=== PATIENT | female | born 1990 | race Caucasian/White ===

== ENCOUNTER 2019-06-16 14:35 | Inpatient (IN) | payer BC ==
[2019-06-16 14:44] VITALS: BMI 20.7
--- NOTE | 2019-06-16 14:45 | PDOC ---
Rapid Medical Evaluation Time Seen by Provider: 06/16/19 14:40 Medical Evaluation: Allergies Allergy/AdvReac Type Severity Reaction Status Date / Time No Known Allergies Allergy Verified 06/16/19 14:40 06/16/19 14:42 The patient presents for an abscess behind her L ear starting a few days ago. She was seen by Dr. Salazar and told to come to the ER for surgical evaluation. She is 12 weeks , denies vaginal bleeding. Exam: 2cm linear area of induration with associated drainage. Orders: labs Pt to proceed to the ER for further evaluation Discharge Disposition - Diagnosis Abscess - Referrals - Patient Instructions - Post Discharge Activity
[2019-06-16 15:31] LABS: INR 0.92 (0.83-1.09); PROTHROMBIN TIME (PATIENT) 10.9 SEC (9.7-13.0)
[2019-06-16 15:33] LABS: BASO % 0.5 % (0-2.0); EOS % 2.8 % (0-4.5); HEMATOCRIT 38.7 % (32.4-45.2); HEMOGLOBIN 12.3 GM/dL (10.7-15.3); LYMPH % 14.5 % (8-40); MCHC 31.8 g/dl (32.0-36.0); MEAN CELL VOLUME 85.2 fl (80-96); MEAN PLT VOLUME 8.7 fl (7.5-11.1); MONO % 8.9 % (3.8-10.2); NEUT % 73.3 % (42.8-82.8); PLATELET COUNT 272 K/MM3 (134-434); RBC 4.54 M/mm3 (3.60-5.2); RDW 16.1 % (11.6-15.6); WHITE BLOOD COUNT 15.9 K/mm3 (4.0-10.0)
[2019-06-16 15:43] LABS: ALBUMIN 3.5 g/dl (3.4-5.0); BILIRUBIN,TOTAL 0.2 mg/dL (0.2-1); BLOOD UREA NITROGEN 8.3 mg/dL (7-18); CALCIUM 8.9 mg/dL (8.5-10.1); CREATININE 0.6 mg/dL (0.55-1.3); POTASSIUM 3.9 mmol/L (3.5-5.1); TOT PROT 7.4 g/dl (6.4-8.2)
--- NOTE | 2019-06-16 16:41 | PDOC ---
History of Present Illness - General Chief Complaint: Wound Stated Complaint: SENT BY Time Seen by Provider: 06/16/19 14:40 - History of Present Illness Initial Comments: 06/16/19 16:35 CHIEF COMPLAINT: ear abscess HISTORY OF PRESENT ILLNESS: 28 yo F female sent to ED for ear abscess x "a few days" after returning from [place]. Patient reports that she was prescribed amoxicillin yesterday by an LOAN OFFICER ASSISTANT at her PCP's office. She reports today her PCP Dr. Salazar gave her IV Keflex in the office. Dr. Salazar tried to drain in the office but sent her here to No recent travel or sick contacts. PAST MEDICAL HISTORY: Denies past medical history FAMILY HISTORY: Denies SOCIAL HISTORY: Denies tobacco, alcohol, illicit drug use. SURGICAL HISTORY: Denies ALLERGIES: No known drug allergies REVIEW OF SYSTEMS General/Constitutional: Denies fever or chills. Denies weakness, weight change. HEENT: Abscess to L ear. Denies change in vision. Denies ear pain or discharge. Denies sore throat. Cardiovascular: Denies chest pain or shortness of breath. Respiratory: Denies cough, wheezing, or hemoptysis. Gastrointestinal: Denies nausea, vomiting, diarrhea or constipation. Denies rectal bleeding. Genitourinary: Denies dysuria, frequency, or change in urination. Musculoskeletal: Denies joint or muscle swelling or pain. Denies neck or back pain. Skin and breasts: Denies rash or easy bruising. Neurologic: Denies headache, vertigo, loss of consciousness, or loss of sensation. Psychiatric: Denies depression or anxiety. PHYSICAL EXAM General Appearance: Well-appearing, appropriately dressed. No apparent distress. HEENT: Tender abscess to L posterior ear. EOMI, PERRLA, normal ENT inspection, normal voice, TMs normal, pharynx normal. No conjunctival pallor. No photophobia, scleral icterus. Neck: Supple. Trachea midline. No tenderness, rigidity, carotid bruit, stridor , lymphadenopathy, or thyromegaly. Respiratory/Chest: Lungs CTAB. No shortness of breath, chest tenderness, respiratory distress, accessory muscle use. No crackles, rales, rhonchi, stridor , wheezing, dullness Cardiovascular: RRR. S1, S2. No JVD, murmur, bradycardia, tachycardia. Vascular Pulses: Dorsalis-Pedis (R): 2+, Dorsalis-Pedis (L): 2+ Gastrointestinal/Abdominal: Normal bowel sounds. Abdomen soft, non-distended. No tenderness or rebound tenderness. No organomegaly, pulsatile mass, guarding , hernia, hepatomegaly, splenomegaly. Lymphatic: No adenopathy, tenderness. Musculoskeletal/Extremities: Normal inspection. FROM of all extremities, normal capillary refill. Pelvis Stable. No CVA tenderness. No tenderness to extremities, pedal edema, swelling, erythema or deformity. Integumentary: Appropriate color, dry, warm. No cyanosis, erythema, jaundice or rash Neurologic: inspector repairer II-XII intact. Fully oriented, alert. Appropriate mood/affect. Motor strength 5/5. No appreciable EOM palsy, facial droop or sensory deficit. 06/16/19 17:03 Past History - Past Medical History Allergies/Adverse Reactions: Allergies Allergy/AdvReac Type Severity Reaction Status Date / Time No Known Allergies Allergy Verified 06/16/19 14:40 COPD: No - Immunization History Immunization Up to Date: No - Suicide/Smoking/Psychosocial Hx Smoking History: Never smoked Have you smoked in the past 12 months: No Hx Alcohol Use: No Drug/Substance Use Hx: No *Physical Exam - Vital Signs Last Vital Signs Temp Pulse Resp BP Pulse Ox 98.4 F 89 18 128/66 100 06/16/19 14:41 06/16/19 14:41 06/16/19 14:41 06/16/19 14:41 06/16/19 14:41 ED Treatment Course - LABORATORY CBC & Chemistry Diagram: 06/16/19 15:03 06/16/19 15:03 - ADDITIONAL ORDERS Additional order review: Laboratory Results 06/16/19 06/16/19 06/16/19 15:03 15:03 15:03 PT with INR 10.90 INR 0.92 Sodium Potassium Chloride Carbon Dioxide Anion Gap BUN Creatinine Est GFR (CKD-EPI)AfAm Est GFR (CKD-EPI)NonAf Random Glucose Calcium Total Bilirubin AST ALT Alkaline Phosphatase Total Protein Albumin Urine HCG, Qual Positive Blood Type O POSITIVE Antibody Screen Negative 06/16/19 15:03 PT with INR INR Sodium 136 Potassium 3.9 Chloride 103 Carbon Dioxide 26 Anion Gap 7 L BUN 8.3 Creatinine 0.6 Est GFR (CKD-EPI)AfAm 143.77 Est GFR (CKD-EPI)NonAf 124.04 Random Glucose 99 Calcium 8.9 Total Bilirubin 0.2 AST 20 ALT 51 Alkaline Phosphatase 103 Total Protein 7.4 Albumin 3.5 Urine HCG, Qual Blood Type Antibody Screen 06/16/19 15:03 RBC 4.54 MCV 85.2 MCHC 31.8 L RDW 16.1 H MPV 8.7 Neutrophils % 73.3 Lymphocytes % 14.5 Monocytes % 8.9 Eosinophils % 2.8 Basophils % 0.5 Medical Decision Making - Medical Decision Making 06/16/19 16:30 28 yo F female sent to ED for ear abscess x "a few days" after returning from [place]. Discussed case with Dr. Raines, who states he will come and see patient. 06/16/19 15:[address] Raines, who states patient needs to be admitted to have I&D completed in OR tomorrow. *DC/Admit/Observation/Transfer Diagnosis at time of Disposition: Abscess - Discharge Dispostion Decision to Admit order: Yes - Referrals - Patient Instructions - Post Discharge Activity
[2019-06-16] MEDS ORDERED: CEFAZOLIN 1 GM/D5W 1 GM/50 ML BAG IVPB ONE (17:21)
[2019-06-16] MEDS ORDERED: CEFAZOLIN 1 GM/D5W 1 GM/50 ML BAG ONE (17:50)
[2019-06-16] MEDS: SODIUM CHLORIDE 1,000 ML IV SCH (22:09)
--- NOTE | 2019-06-16 22:30 | HP ---
Admitting History and Physical - Primary Care Physician PCP: Sacha Salazar - Admission Chief Complaint: Abscess behind L- Ear History of Present Illness: This is a 28 y/o woman who is 12 weeks gestation with no PMHx. Who presents to the ED sent in by her PMD for abscess to L- mastoid process. Patient reports recent trip to [place] and noted a bump behind her ear that worsened after her popped it at home. She reports using warm compresses and taking Tylenol without relief. She reports taking Keflex without improvement and was at the office today, and her PMD attempted to I&D it. Patient reprots 2 other bumps appeared one above the first and the other in the mid nape of her hairline. Patient denies fever, chills, cough, SOB, CP, palpiations, N/V/D, constipation, dysuria History Source: Patient Limitations to Obtaining History: No Limitations - Past Medical History ...: Yes (12 weeks gestation) ...: 1 ...Para: 0 - Smoking History Smoking history: Never smoked Have you smoked in the past 12 months: No - Alcohol/Substance Use Hx Alcohol Use: No Home Medications - Allergies Allergies/Adverse Reactions: Allergies Allergy/AdvReac Type Severity Reaction Status Date / Time No Known Allergies Allergy Verified 06/16/19 14:40 - Home Medications Home Medications: Ambulatory Orders NK [No Known Home Medication] 06/16/19 Family Medical History Family History: Unremarkable Review of Systems - Review of Systems Constitutional: reports: No Symptoms Eyes: reports: No Symptoms HENT: reports: No Symptoms Neck: reports: Swollen Glands, Tenderness Cardiovascular: reports: No Symptoms Respiratory: reports: No Symptoms Gastrointestinal: reports: No Symptoms Genitourinary: reports: No Symptoms Breasts: reports: No Symptoms Reported Musculoskeletal: reports: No Symptoms Integumentary: reports: Erythema, Lump Neurological: reports: No Symptoms Endocrine: reports: No Symptoms Hematology/Lymphatic: reports: No Symptoms Psychiatric: reports: No Symptoms Pain Intensity: 6 Physical Examination Vital Signs: Vital Signs Temperature 98.4 F 06/16/19 14:41 Pulse Rate 89 06/16/19 14:41 Respiratory Rate 18 06/16/19 14:41 Blood Pressure 128/66 06/16/19 14:41 O2 Sat by Pulse Oximetry (%) 100 06/16/19 14:41 Constitutional: Yes: Well Nourished, No Distress, Calm Eyes: Yes: WNL, Conjunctiva Clear, EOM Intact HENT: Yes: WNL, Atraumatic, Normocephalic Neck: Yes: WNL, Supple, Trachea Midline Cardiovascular: Yes: WNL, Regular Rate and Rhythm, S1, S2 Respiratory: Yes: WNL, Regular, CTA Bilaterally Gastrointestinal: Yes: WNL, Normal Bowel Sounds, Soft ...Rectal Exam: Yes: Deferred Renal/: Yes: WNL Breast(s): Yes: WNL Musculoskeletal: Yes: WNL Extremities: Yes: WNL Edema: No Peripheral Pulses WNL: Yes Integumentary: Yes: Erythema Wound/Incision: Yes: Reddened, Other (induration, TTP to L-posterior auricular/ mastoid process) Neurological: Yes: WNL, Alert, Oriented ...Motor Strength: WNL Psychiatric: Yes: WNL, Alert, Oriented Labs: CBC, BMP 06/16/19 15:03 06/16/19 15:03 Problem List - Problems (1) Abscess Assessment/Plan: Patient reports recent travel to [place], ?insect bite Failed outpatient therapy Blood Cultures-pending Ancef given in ED, will continue Surgeon following- OR tomorrow for I&D NPO IVF pre-op labs completed Monitor CBC, BMP Monitor vitals Ofirmev prn Code(s): L02.91 - CUTANEOUS ABSCESS, UNSPECIFIED (2) Assessment/Plan: Continue vitamins f/u with OB in outpatient upon d/c Code(s): Z34.90 - ENCNTR FOR SUPRVSN OF NORMAL , UNSP, UNSP TRIMESTER Qualifiers: Weeks of gestation: 12 weeks Qualified Code(s): Z3A.12 - 12 weeks gestation of Assessment/Plan This is a 28 y/o woman with no PMHx who is 12 weeks Gestation [id number]. Admitted to [facility] for Abscess to L- Posterior Auricular Mastoid Process for further evaluation of their emergent condition Plan: See Problem List FEN NS@75ml/hr Replete lytes NPO DVT ppx OOB SCDs Dispo: Requires Inpatient Care Visit type - Emergency Visit Emergency Visit: Yes ED Registration Date: 06/16/19 Care time: The patient presented to the Emergency Department on the above date and was hospitalized for further evaluation of their emergent condition. - New Patient This patient is new to me today: Yes Date on this admission: 06/16/19 - Critical Care Critical Care patient: No
[2019-06-16] MEDS ORDERED: ACETAMINOPHEN 1000 MG/100 ML VIAL (NON FORMULARY) IVPB PRN (22:43)
[2019-06-17] MEDS ORDERED: DEXTROSE 5%-WATER - 50 ML IVPB ONE (02:25)
[2019-06-17] MEDS ORDERED: ceFAZolin SODIUM 1 GM VIAL ONE (02:25)
[2019-06-17] MEDS: CEFAZOLIN 1 GM in DEXTROSE 5%-WATER - 50 ML IVPB SCH ×2 (02:28→13:10)
[2019-06-17] MEDS: SODIUM CHLORIDE 1,000 ML IV SCH (08:23)
[2019-06-17 08:59] LABS: BASO % 0.6 % (0-2.0); EOS % 3.1 % (0-4.5); HEMATOCRIT 33.5 % (32.4-45.2); HEMOGLOBIN 10.9 GM/dL (10.7-15.3); MCH 27.7 pg (25.7-33.7); MCHC 32.7 g/dl (32.0-36.0); MEAN CELL VOLUME 84.6 fl (80-96); MEAN PLT VOLUME 8.7 fl (7.5-11.1); MONO % 7.5 % (3.8-10.2); NEUT % 72.8 % (42.8-82.8); PLATELET COUNT 241 K/MM3 (134-434); RBC 3.95 M/mm3 (3.60-5.2); RDW 15.8 % (11.6-15.6); WHITE BLOOD COUNT 12.5 K/mm3 (4.0-10.0)
--- NOTE | 2019-06-17 09:06 | CONSULT ---
- Consultation REQUESTING PROVIDER: Martin HUTCHINSON CONSULT REQUEST: We have been asked to surgically evaluate this patient for ( specify). PCP:Sacha Salazar HISTORY OF PRESENT ILLNESS:BOAZ who is a 28 y/o female who is 12 weeks gestation who presents to the [facility] ED sent in by her PMD for an abscess to L- mastoid process. Patient reports recent trip to [place] and noted a bump behind her ear that worsened after her popped it at home. She reports using warm compresses and taking Tylenol without relief. She reports taking Keflex without improvement and was at the office today, and her PMD attempted to I&D it. Patient reprots 2 other bumps appeared one above the first and the other in the mid nape of her hairline. She eceived IVAB's in the office. PMHx: none PSHx: none Home Medications Medication Instructions Recorded NK [No Known Home Medication] 06/16/19 Allergies Allergy/AdvReac Type Severity Reaction Status Date / Time No Known Allergies Allergy Verified 06/16/19 14:40 REVIEW OF SYSTEMS: CONSTITUTIONAL: Absent: fever, chills, diaphoresis, generalized weakness, malaise, loss of appetite, weight change CARDIOVASCULAR: Absent: chest pain, syncope, palpitations, irregular heart rate, lightheadedness , peripheral edema RESPIRATORY: Absent: cough, shortness of breath, dyspnea with exertion, wheezing, stridor, hemoptysis GASTROINTESTINAL: Absent: abdominal pain, abdominal distension, nausea, vomiting, diarrhea, constipation, melena, hematochezia GENITOURINARY: Absent: dysuria, frequency, urgency, hesitancy, hematuria, flank pain, genital pain MUSCULOSKELETAL: Absent: myalgia, arthralgia, joint swelling, back pain, neck pain SKIN: Absent: rash, itching, pallor HEMATOLOGIC/IMMUNOLOGIC: Absent: easy bleeding, easy bruising, lymphadenopathy NEUROLOGIC: Absent: headache, focal weakness, paresthesias, dizziness, unsteady gait, seizure, mental status changes, bladder or bowel incontinence PSYCHIATRIC: Absent: anxiety, depression, suicidal or homicidal ideation, hallucinations. PHYSICAL EXAM: GENERAL: Awake, alert, and fully oriented, in no acute distress. HEAD: Normal with no signs of trauma. EYES: PERRL, sclera anicteric, conjunctiva clear. NECK: Normal ROM, supple without lymphadenopathy, JVD, or masses. ABDOMEN: Soft, nontender, not distended, normoactive bowel sounds, no guarding, no rebound, no masses. No organomegaly. MUSCULOSKELETAL: Normal ROM at all joints. No bony deformities or tenderness. No CVA tenderness. UPPER EXTREMITIES: 2+ pulses, warm, well-perfused. No cyanosis. Cap refill <2 seconds. No peripheral edema. LOWER EXTREMITIES: 2+ pulses, warm, well-perfused. No calf tenderness. No peripheral edema. NEUROLOGICAL: Normal speech, gait not observed. PSYCH: Cooperative. Good eye contact. Appropriate mood and affect. SKIN: Warm, dry, normal turgor, ABSSSI over left mastoid area behind left ear; ttp w/overlying erythema. Vital Signs Temperature 98 F 06/17/19 05:21 Pulse Rate 76 06/17/19 05:21 Respiratory Rate 20 06/17/19 08:37 Blood Pressure 98/48 L 06/17/19 05:21 O2 Sat by Pulse Oximetry (%) 99 06/17/19 08:37 Lab Results WBC 15.9 K/mm3 (4.0-10.0) H 06/16/19 15:03 RBC 4.54 M/mm3 (3.60-5.2) 06/16/19 15:03 Hgb 12.3 GM/dL (10.7-15.3) 06/16/19 15:03 Hct 38.7 % (32.4-45.2) 06/16/19 15:03 MCV 85.2 fl (80-96) 06/16/19 15:03 MCHC 31.8 g/dl (32.0-36.0) L 06/16/19 15:03 RDW 16.1 % (11.6-15.6) H 06/16/19 15:03 Plt Count 272 K/MM3 (134-434) 06/16/19 15:03 Sodium 136 mmol/L (136-145) 06/16/19 15:03 Potassium 3.9 mmol/L (3.5-5.1) 06/16/19 15:03 Chloride 103 mmol/L (98-107) 06/16/19 15:03 Carbon Dioxide 26 mmol/L (21-32) 06/16/19 15:03 Anion Gap 7 MMOL/L (8-16) L 06/16/19 15:03 BUN 8.3 mg/dL (7-18) 06/16/19 15:03 Creatinine 0.6 mg/dL (0.55-1.3) 06/16/19 15:03 Random Glucose 99 mg/dL (74-106) 06/16/19 15:03 Calcium 8.9 mg/dL (8.5-10.1) 06/16/19 15:03 Blood Type O POSITIVE 06/16/19 21:30 Antibody Screen Negative 06/16/19 15:03 INR 0.92 (0.83-1.09) 06/16/19 15:03 IMP:ABSSSI of left posterior ear; mastoid area PLAN: For I and in OR; r/b/t/a's d/w the patient and she is amenable to same. Valeriano Raines MD FACS
[2019-06-17 09:17] LABS: BLOOD UREA NITROGEN 5.8 mg/dL (7-18); CALCIUM 8.2 mg/dL (8.5-10.1); CREATININE 0.4 mg/dL (0.55-1.3); POTASSIUM 3.9 mmol/L (3.5-5.1)
[2019-06-17] MEDS ORDERED: PROPOFOL 20 ML ONE ×3 (09:50)
[2019-06-17] MEDS ORDERED: SUCCINYLCHOLINE CHLORIDE 200 MG/10 ML SYRINGE ONE (09:51)
[2019-06-17] MEDS ORDERED: DEXAMETHASONE SOD PHOSPHATE 4 MG/1 ML VIAL ONE (09:52)
[2019-06-17] MEDS ORDERED: ROCURONIUM BROMIDE 50 MG/5 ML SYRINGE ONE (09:52)
[2019-06-17] MEDS ORDERED: ceFAZolin SODIUM 1 GM VIAL IVPB ONE (11:02)
--- NOTE | 2019-06-17 11:39 | CON.ID ---
Consult Consult Specialty:: infectious diseases - Past Medical History ...LMP: 03/12/19 ...: Yes (12 weeks gestation) - Alcohol/Substance Use Hx Alcohol Use: No - Smoking History Smoking history: Never smoked Have you smoked in the past 12 months: No Home Medications - Allergies Allergies/Adverse Reactions: Allergies Allergy/AdvReac Type Severity Reaction Status Date / Time No Known Allergies Allergy Verified 06/16/19 14:40 - Home Medications Home Medications: Ambulatory Orders NK [No Known Home Medication] 06/16/19 Physical Exam Vital Signs: Vital Signs Temperature 98 F 06/17/19 05:21 Pulse Rate 76 06/17/19 05:21 Respiratory Rate 20 06/17/19 08:37 Blood Pressure 98/48 L 06/17/19 05:21 O2 Sat by Pulse Oximetry (%) 99 06/17/19 08:37 Labs: CBC, BMP 06/17/19 07:25 06/17/19 07:15
[2019-06-17] MEDS ORDERED: ACETAMINOPHEN INJECTION 100 ML IVPB ONE (11:40)
--- NOTE | 2019-06-17 11:50 | OP ---
Operative Note - Note: Operative Date: 06/17/19 Pre-Operative Diagnosis: abscess left scalp/neck Operation: incision and drainage Findings: abscess posterior to left ear Post-Operative Diagnosis: Same as Pre-op Surgeon: Valeriano Raines Anesthesiologist/MANAGER QUALITY IMPROVEMENT: Estrada Williamson Anesthesia: General Estimated Blood Loss (mls): 5 Drains & Tubes with Location: iodoform packing
[2019-06-17] MEDS ORDERED: SODIUM CHLORIDE 1,000 ML IV SCH (12:16)
[2019-06-17] MEDS ORDERED: ACETAMINOPHEN 1000 MG/100 ML VIAL (NON FORMULARY) IVPB PRN (12:16)
--- NOTE | 2019-06-17 15:01 | DS ---
Physical Examination Vital Signs: Vital Signs Temperature 98.0 F 06/17/19 12:28 Pulse Rate 78 06/17/19 12:28 Respiratory Rate 16 06/17/19 12:28 Blood Pressure 93/53 L 06/17/19 12:28 O2 Sat by Pulse Oximetry (%) 98 06/17/19 12:28 Constitutional: Yes: No Distress, Calm Eyes: Yes: Conjunctiva Clear HENT: Yes: Atraumatic Cardiovascular: Yes: Regular Rate and Rhythm Respiratory: Yes: Regular, CTA Bilaterally Musculoskeletal: Yes: WNL Extremities: Yes: WNL Edema: No Wound/Incision: Yes: Dressing Dry and Intact Neurological: Yes: Alert, Oriented Psychiatric: Yes: Alert, Oriented Labs: CBC, BMP 06/17/19 07:25 06/17/19 07:15 Discharge Summary Reason For Visit: ABSCESS Current Active Problems Abscess (Acute) (Acute) Procedures: Principal: I&D Hospital Course: Patient is 28 y/o female 12 weeks gestation, no past medical history. Patient presented to ER with abscessto L mastoid process. Patient had a recent trip to [place] where she noticed a bump behind her R ear that progressively got worse. Was seen by PMD and prescribed Keflex with no improvement. I&D attempted in PMD office. In hospital patient evaluated by surgery and I&D performed. Wound culture taken and patient prescribed PO antibiotics for discharge. Laboratory Tests 06/16/19 06/16/19 06/16/19 15:03 15:03 15:03 WBC 15.9 H RBC 4.54 Hgb 12.3 Hct 38.7 MCV 85.2 MCH 27.0 MCHC 31.8 L RDW 16.1 H Plt Count 272 MPV 8.7 Absolute Neuts (auto) 11.7 H Neutrophils % 73.3 Lymphocytes % 14.5 Monocytes % 8.9 Eosinophils % 2.8 Basophils % 0.5 Nucleated RBC % 0 PT with INR 10.90 INR 0.92 Sodium 136 Potassium 3.9 Chloride 103 Carbon Dioxide 26 Anion Gap 7 L BUN 8.3 Creatinine 0.6 Est GFR (CKD-EPI)AfAm 143.77 Est GFR (CKD-EPI)NonAf 124.04 Random Glucose 99 Calcium 8.9 Total Bilirubin 0.2 AST 20 ALT 51 Alkaline Phosphatase 103 Total Protein 7.4 Albumin 3.5 Urine HCG, Qual Blood Type Antibody Screen 06/16/19 06/16/19 06/16/19 15:03 15:03 21:30 WBC RBC Hgb Hct MCV MCH MCHC RDW Plt Count MPV Absolute Neuts (auto) Neutrophils % Lymphocytes % Monocytes % Eosinophils % Basophils % Nucleated RBC % PT with INR INR Sodium Potassium Chloride Carbon Dioxide Anion Gap BUN Creatinine Est GFR (CKD-EPI)AfAm Est GFR (CKD-EPI)NonAf Random Glucose Calcium Total Bilirubin AST ALT Alkaline Phosphatase Total Protein Albumin Urine HCG, Qual Positive Blood Type O POSITIVE O POSITIVE Antibody Screen Negative 06/17/19 06/17/19 07:15 07:25 WBC 12.5 H RBC 3.95 Hgb 10.9 Hct 33.5 MCV 84.6 MCH 27.7 MCHC 32.7 RDW 15.8 H Plt Count 241 MPV 8.7 Absolute Neuts (auto) 9.1 H Neutrophils % 72.8 Lymphocytes % 16.0 Monocytes % 7.5 Eosinophils % 3.1 Basophils % 0.6 Nucleated RBC % 0 PT with INR INR Sodium 135 L Potassium 3.9 Chloride 104 Carbon Dioxide 26 Anion Gap 6 L BUN 5.8 L Creatinine 0.4 L Est GFR (CKD-EPI)AfAm 164.28 Est GFR (CKD-EPI)NonAf 141.74 Random Glucose 81 Calcium 8.2 L Total Bilirubin AST ALT Alkaline Phosphatase Total Protein Albumin Urine HCG, Qual Blood Type Antibody Screen Active Medications Generic Name Dose Route Start Last Admin Trade Name Freq PRN Reason Stop Dose Admin Acetaminophen 1,000 mg 06/17/19 12:16 Ofirmev Injection - IVPB Q6H PRN PAIN LEVEL 6-10 Fentanyl 50 mcg 06/17/19 12:16 Sublimaze Injection - IVPUSH [id number] PRN PAIN-PACU ORDER X 4 DOSES ONLY Sodium Chloride 1,000 mls @ 75 mls/hr 06/17/19 12:16 06/17/19 12:31 Normal Saline - IV 0 mls ASDIR SANDY Administration Condition: Stable - Instructions Diet, Activity, Other Instructions: Dr. Raines Discharge Instructions Dear CIERRA VÁZQUEZ, Post Operative Instructions Physical activity Resume your normal everyday activity as tolerated no heavy lifting or exercise until seen by your surgeon. You may walk unlimited amounts of and climb stairs. You may resume driving the car when you feel safe and comfortable behind the wheel. Wound care If you have a bandage, leave it on, do not change it. Try to keep the dressing dry. Diet There are no dietary restrictions. Eat healthy, high-fiber foods. Drink 6 to 8 glasses of liquid each day. This will assist in keeping your bowels are regular. Pain management You may take Tylenol or acetaminophen or Ibuprofen (for example, Motrin, Advil etc.) Any pain prescription medication ordered should be taken as prescribed for moderate to severe pain. Call Dr. Raines for any of the following: Severe pain not relieved by medication Fever of 101 or higher Excessive bleeding or drainage on dressing Inability to urinate Call the office at [phone] for a post operative appointment for Friday June 21, 2019 2-4PM. Follow up with PMD in 1 week after discharge continue with antitbiotics as prescribed follow up with Surgery Dr Raines return to ER if develop fever, severe pain, respiratory distress Referrals: Valeriano Raines MD [Staff Physician] - Disposition: HOME - Home Medications Comprehensive Discharge Medication List: Ambulatory Orders Clindamycin HCl [Cleocin HCl] 300 mg PO Q6H 10 Days #40 capsule 06/17/19
[2019-06-17 15:04] VITALS: BP 99/55; PULSE 79; TEMP 98.3
--- NOTE | 2019-06-27 16:44 | OP ---
DATE OF OPERATION: 06/17/2019 PREOPERATIVE DIAGNOSIS: Abscess of left scalp and neck. POSTOPERATIVE DIAGNOSIS: Abscess of left scalp and neck. PROCEDURE: Incision and drainage of abscess of left scalp and neck. SURGEON: Valeriano Raines MD ANESTHESIA: General. OPERATIVE FINDINGS: There was an abscess posterior to the left ear of the upper neck and scalp. The rest of the findings were unremarkable. PROCEDURE: The patient was placed on the operating room table in supine position, and after the induction of general anesthesia, the area over the fluctuant mass was prepped with Betadine and draped in sterile fashion. A timeout was taken and then incision was made with a scalpel and taken down through skin and subcutaneous tissue. Purulent drainage was sent for culture and sensitivity and all loculations within the abscess cavity were broken up using blunt dissection. Hemostasis was secured with electrocautery and then the wound copiously irrigated with sterile saline and peroxide. The wound was then packed after verification of hemostasis again with 0.5-inch iodoform packing, and the wound dressed with dry sterile dressings and the patient aroused from general anesthesia and transferred to the post-anesthesia care unit in stable condition, awake and alert. Estimated blood loss 5 mL. Replacement: Crystalloid. Drains: None. Specimen: Culture and sensitivity of purulent drainage to Microbiology. I, Valeriano Raines, was physically present in the operating room from the time the patient was placed on the operating room table until she was transferred to the post-anesthesia care unit in [employer]. MD CHRIS Del Cid/[id number] [facility]
== END 2019-06-17 16:47 | disposition home or self-care (01) | DRG 832 ==
LOC: JER 14:35 → JERBED 17:18 → J6S 18:45
PROVIDERS: ADMIT Family Medicine; ATTEND Family Medicine
PROC: 0J900ZX Drainage of Scalp Subcutaneous Tissue and Fascia, Open Approach, Diagnostic (ICD-10-PCS; 2019-06-17)
PROC: 0J950ZX Drainage of Left Neck Subcutaneous Tissue and Fascia, Open Approach, Diagnostic (ICD-10-PCS; principal; 2019-06-17 09:30)
DX: O26.92 Pregnancy related conditions, unspecified, second trimester (principal); L02.811 Cutaneous abscess of head [any part, except face]; H60.02 Abscess of left external ear
CPT/HCPCS: 36415; 80048; 80053; 84703; 85025; 85610; 86850; 86900; 86901; 87070; 87186; 87205; 94760; 99284-25; J0131; J7030

== ENCOUNTER 2025-05-10 17:00 | Inpatient (IN) | payer BC ==
[2025-05-10 17:39] LABS: ABSOLUTE IMMATURE GRANULOCYTES 0.33 x10^3/uL (0.0-0.031); BASOPHILS # 0.08 x10^3/uL (0.01-0.08); EOSINOPHIL % 1.9 % (0.7-5.8); EOSINOPHILS # 0.15 x10^3/uL (0.04-0.36); MCHC 32.0 g/dl (32.2-35.5); MEAN CELL VOLUME 87.3 fl (79.4-94.8); MEAN PLT VOLUME 11.1 fl (9.4-12.3); MONOCYTE # 0.75 x10^3/uL (0.24-0.86); MONOCYTE % 9.6 % (4.7-12.5); RDW 14.6 % (12.1-16.8)
[2025-05-10 17:47] LABS: INR 0.83 (0.83-1.09); PROTHROMBIN TIME (PATIENT) 9.0 SEC (9.7-13.0)
[2025-05-10 17:50] LABS: ACTIVATED PTT 26.3 SECONDS (25.2-36.5)
[2025-05-10 18:00] LABS: GLUCOSE,RANDOM 88.0 mg/dL (74-106); TOT PROT 7.0 g/dl (6.4-8.2)
[2025-05-10 18:01] LABS: CO2 20.0 mmol/L (21-32)
[2025-05-10 18:03] LABS: ALK PHOS 201.0 U/L (40-150)
[2025-05-10 18:05] LABS: CREATININE 0.79 mg/dL (0.55-1.3); SGOT/AST 28.0 U/L (5-34); SGPT/ALT 19.0 U/L (0-55)
[2025-05-10 18:06] VITALS: BMI 33.0
[2025-05-10] MEDS: ELECTROLYTE-148 SOLN 1,000 ML IV SCH (19:10)
[2025-05-10] MEDS: CITRIC ACID/SODIUM CITRATE 30 ML UNIT-DOSE CUP PO ONE (19:10)
[2025-05-10] MEDS ORDERED: FENTANYL CITRATE/PF 50 MCG/ML VIAL ONE (20:44)
[2025-05-10] MEDS ORDERED: morphine SULFATE/PF 1 MG/2 ML (2cc Syringe - QUVA) ONE (20:44)
[2025-05-10] MEDS ORDERED: OXYTOCIN 10 UNITS/ML VIAL ONE (21:40)
[2025-05-10] MEDS ORDERED: BENZOCAINE 20% 57 GM BOTTLE TP PRN (22:28)
[2025-05-10] MEDS ORDERED: WITCH HAZEL 50% (TUCKS) 40 PAD/JAR PAD TP PRN (22:28)
[2025-05-10] MEDS ORDERED: BENZOCAINE 28 GM HEMORRHOIDAL OINTMENT TP PRN (22:28)
[2025-05-10] MEDS ORDERED: OXYTOCIN 20 UNITS in 0.9% NS 20 UNIT/1,000 ML INFUS.BAG IV ONE (22:36)
[2025-05-10 22:38] LABS: CORD BASE EXCESS -2.3 mmol/L (0-2); CORD BASE EXCESS -2.7 mmol/L (0-2); CORD HCO3 21.9 mmHg (20-29); CORD HCO3 24.8 mmHg (20-29); CORD PCO2 37.8 mmHg (30-78); CORD PCO2 50.8 mmHg (30-78); CORD pH 7.306 (7.14-7.44); CORD pH 7.381 (7.14-7.44)
[2025-05-10] MEDS: OXYTOCIN 20 UNITS in 0.9% NS 20 UNIT/1,000 ML INFUS.BAG IV SCH (22:40)
[2025-05-11] MEDS: SIMETHICONE 80 MG TAB.CHEW (FP) PO PRN (01:45)
[2025-05-11 06:26] VITALS: RESP 18
[2025-05-11 06:56] LABS: ABSOLUTE IMMATURE GRANULOCYTES 0.11 x10^3/uL (0.0-0.031); BASOPHILS # 0.07 x10^3/uL (0.01-0.08); EOSINOPHIL % 1.6 % (0.7-5.8); EOSINOPHILS # 0.15 x10^3/uL (0.04-0.36); MCHC 31.7 g/dl (32.2-35.5); MEAN CELL VOLUME 89.4 fl (79.4-94.8); MEAN PLT VOLUME 10.9 fl (9.4-12.3); MONOCYTE # 0.75 x10^3/uL (0.24-0.86); MONOCYTE % 8.1 % (4.7-12.5); RDW 14.5 % (12.1-16.8)
[2025-05-11] MEDS: IBUPROFEN 800 MG/8 ML IJ IVPB PRN (10:19)
[2025-05-11] MEDS: PRENATAL VITAMINS W/ FOLIC ACID TABLET (FP) PO SCH (10:21)
[2025-05-11] MEDS: ENOXAPARIN NA (PORCINE) 40 MG/0.4 ML DISP.SYRIN SQ SCH (10:21)
[2025-05-11] MEDS: METHYLERGONOVINE MALEATE 0.2 MG/1 ML AMP IM PRN (15:29)
[2025-05-11] MEDS: ACETAMINOPHEN 325 MG TABLET (FP) PO PRN (16:06)
[2025-05-11] MEDS ORDERED: BISACODYL 10 MG SUPP.RECT RC PRN (22:28)
[2025-05-12] MEDS: IBUPROFEN 600 MG TABLET (FP) PO PRN (07:57)
[2025-05-13 07:10] LABS: ABSOLUTE IMMATURE GRANULOCYTES 0.67 x10^3/uL (0.0-0.031); BASOPHILS # 0.08 x10^3/uL (0.01-0.08); EOSINOPHIL % 2.5 % (0.7-5.8); EOSINOPHILS # 0.32 x10^3/uL (0.04-0.36); MCHC 31.7 g/dl (32.2-35.5); MEAN CELL VOLUME 89.8 fl (79.4-94.8); MEAN PLT VOLUME 10.9 fl (9.4-12.3); MONOCYTE # 1.00 x10^3/uL (0.24-0.86); MONOCYTE % 7.8 % (4.7-12.5); RDW 14.8 % (12.1-16.8)
[2025-05-13] MEDS: IRON SUCROSE INJECTION 200 MG in SODIUM CHLORIDE 100 ML IVPB ONE (09:20)
[2025-05-13 23:19] VITALS: TEMP 98.2
[2025-05-14 08:30] LABS: MCHC 30.8 g/dl (32.2-35.5); MEAN CELL VOLUME 91.5 fl (79.4-94.8); MEAN PLT VOLUME 10.7 fl (9.4-12.3); RDW 15.1 % (12.1-16.8)
[2025-05-14 08:58] LABS: MONOCYTE # 0.66 x10^3/uL (0.24-0.86)
[2025-05-14 10:30] VITALS: BP 112/73; PULSE 89
== END 2025-05-14 14:32 | disposition home or self-care (01) | DRG 787 ==
LOC: JLDR 17:00 → J3W 05-11 01:26
PROVIDERS: ADMIT Obstetrics & Gynecology; ATTEND Obstetrics & Gynecology
PROC: 10D00Z1 Extraction of Products of Conception, Low, Open Approach (ICD-10-PCS; principal; 2025-05-10)
DX: O32.1XX0 Maternal care for breech presentation, not applicable or unspecified (principal); O41.03X0 Oligohydramnios, third trimester, not applicable or unspecified; O24.424 Gestational diabetes mellitus in childbirth, insulin controlled; Z3A.38 38 weeks gestation of pregnancy; Z37.0 Single live birth
CPT/HCPCS: 36415; 36600; 80048; 80053; 82803; 85025; 85610; 85730; 86780; 86850; 86900; 86901; 87081; 88307-TC; 94010; J1756